=== PATIENT | male | born 1985 | race Caucasian/White ===

== ENCOUNTER 2018-08-04 21:54 | Emergency (ER) | payer SELFPAY ==
[2018-08-05] MEDS ORDERED: BUPIVACAINE 0.25% PF 10 ML VIAL ONE (00:37)
[2018-08-05] MEDS ORDERED: LIDOCAINE 1% MPF 5 ML VIAL ONE (00:37)
--- NOTE | 2018-08-05 01:00 | EDPHYS ---
Physician Documentation [facility] Name: Richmond Burks Age: 32 yrs Sex: Male : 1985 Arrival Date: 08/04/2018 Time: 21:55 Bed 6 Private MD: None, None ED Physician Gary Barillas HPI: 08/05 01:44 This 32 yrs old Male presents to ER via Ambulatory with complaints of snw Laceration To Hand. 01:44 The patient has a laceration related to: cooking, occurred at home, and there are no snw complicating factors. The laceration(s) is(are) located on the palmar aspect of middle phalanx of right little finger. Onset: The symptoms/episode began/occurred suddenly, just prior to arrival. Associated signs and symptoms: Pertinent positives: heavy bleeding. The patient has not experienced similar symptoms in the past. The patient has not recently seen a physician. Historical: - Allergies: 08/04 22:13 Wellbutrin; aj - Immunization history:: Adult Immunizations up to date, Last tetanus immunization: unknown. - Social history:: Smoking status: Patient/guardian denies using tobacco, Patient uses alcohol, patient/guardian reports recent binge of alcohol consumption. - Ebola Screening: : Patient negative for fever greater than or equal to 101.5 degrees Fahrenheit, and additional compatible Ebola Virus Disease symptoms Patient denies exposure to infectious person Patient denies travel to an Ebola-affected area in the 21 days before illness onset No symptoms or risks identified at this time. ROS: 08/05 01:44 Constitutional: Negative for fever, chills, and weight loss, Eyes: Negative for injury, snw pain, redness, and discharge, ENT: Negative for injury, pain, and discharge, Neck: Negative for injury, pain, and swelling, Cardiovascular: Negative for chest pain, palpitations, and edema, Respiratory: Negative for shortness of breath, cough, wheezing, and pleuritic chest pain, Abdomen/GI: Negative for abdominal pain, nausea, vomiting, diarrhea, and constipation, Back: Negative for injury and pain, : Negative for injury, bleeding, discharge, and swelling, MS/Extremity: Negative for injury and deformity, Neuro: Negative for headache, weakness, numbness, tingling, and seizure, Psych: Negative for depression, anxiety, suicide ideation, homicidal ideation, and hallucinations. Skin: Positive for laceration(s), of the palmar aspect of middle phalanx of right little finger. Exam: 01:42 Constitutional: This is a well developed, well nourished patient who is awake, alert, snw and in no acute distress. Head/Face: Normocephalic, atraumatic. Eyes: Pupils equal round and reactive to light, extra-ocular motions intact. Lids and lashes normal. Conjunctiva and sclera are non-icteric and not injected. Cornea within normal limits. Periorbital areas with no swelling, redness, or edema. ENT: Nares patent. No nasal discharge, no septal abnormalities noted. Tympanic membranes are normal and external auditory canals are clear. Oropharynx with no redness, swelling, or masses, exudates, or evidence of obstruction, uvula midline. Mucous membranes moist. Neck: Trachea midline, no thyromegaly or masses palpated, and no cervical lymphadenopathy. Supple, full range of motion without nuchal rigidity, or vertebral point tenderness. No Meningismus. Chest/axilla: Normal chest wall appearance and motion. Nontender with no deformity. No lesions are appreciated. Cardiovascular: Regular rate and rhythm with a normal S1 and S2. No gallops, murmurs, or rubs. Normal PMI, no JVD. No pulse deficits. Respiratory: Lungs have equal breath sounds bilaterally, clear to auscultation and percussion. No rales, rhonchi or wheezes noted. No increased work of breathing, no retractions or nasal flaring. Abdomen/GI: Soft, non-tender, with normal bowel sounds. No distension or tympany. No guarding or rebound. No evidence of tenderness throughout. Back: No spinal tenderness. No costovertebral tenderness. Full range of motion. MS/ Extremity: Pulses equal, no cyanosis. Neurovascular intact. Full, normal range of motion. Neuro: Awake and alert, GCS 15, oriented to person, place, time, and situation. Cranial nerves II-XII grossly intact. Motor strength 5/5 in all extremities. Sensory grossly intact. Cerebellar exam normal. Normal gait. Psych: Awake, alert, with orientation to person, place and time. Behavior, mood, and affect are within normal limits. 01:42 Skin: Appearance: normal except for affected area, injury, laceration(s), the wound is approximately 2 cm(s), with a depth of 1 cm(s), of the palmar aspect of middle phalanx of right little finger. Vital Signs: 08/04 22:13 BP 121 / 80; Pulse 74; Resp 20; Temp 98.1; Pulse Ox 99% on R/A; Weight 77.11 kg; Height aj 5 ft. 7 in. (170.18 cm); 08/05 00:34 BP 140 / 116; Pulse 69; Resp 16; Temp 98; Pulse Ox 98% on R/A; ak1 01:15 BP 117 / 63; Pulse 80; Resp 16; Temp 98.2; Pulse Ox 97% on R/A; Pain 0/10; ak1 08/04 22:13 Body Mass Index 26.63 (77.11 kg, 170.18 cm) aj MDM: 00:58 Patient medically screened. snw 01:43 Data reviewed: vital signs, nurses notes. Data interpreted: Pulse oximetry: on room air snw is 97 %. Interpretation: normal. Counseling: I had a detailed discussion with the patient and/or guardian regarding: the historical points, exam findings, and any diagnostic results supporting the discharge/admit diagnosis, the need for outpatient follow up, to return to the emergency department if symptoms worsen or persist or if there are any questions or concerns that arise at home. Response to treatment: the patient's symptoms have markedly improved after treatment, and as a result, I will discharge patient. Special discussion: Based on the history and exam findings, there is no indication for further emergent testing or inpatient evaluation. I discussed with the patient/guardian the need to see the primary care provider for further evaluation of the symptoms. 08/05 00:23 Order name: Gloves, Sterile; Complete Time: 01:00 snw 08/05 00:23 Order name: Setup Suture Tray; Complete Time: 00:24 snw 08/05 01:00 Order name: Recheck B/P; Complete Time: 01:14 snw Administered Medications: 00:32 Drug: Lidocaine (2 %) Syringe 100 mg {Note: placed at bedside for provider use.} ak1 Volume: 5 ml; Route: Infiltration; 00:33 Drug: Marcaine (0.25 %) 5 ml {Note: placed at bed side for provider use. .} Route: ak1 Infiltration; 01:14 Drug: Tetanus-Diphtheria Toxoid Adult 0.5 ml {Military Source Operations Specialist: [employer]. Exp: ak1 09/08/2020. Lot #: [id number]. } Route: IM; Site: left deltoid; :15 Follow up: Response: No adverse reaction ak1 01:14 Drug: KeFLEX 500 mg Route: PO; ak1 01:15 Follow up: Response: No adverse reaction ak1 Disposition: 08/05/18 00:58 Discharged to Home. Impression: Laceration without foreign body of right little finger without damage to nail. - Condition is Stable. - Discharge Instructions: Stitches, Fab, or Adhesive Wound Closure, Sutured Wound Care, VIS, Tetanus, Diphtheria (Td) - CDC, Wound Care. - Prescriptions for Keflex 500 mg Oral Capsule - take 1 capsule by ORAL route every 8 hours for 10 days; 30 capsule. Diclofenac Sodium 75 mg Oral Tablet Sustained Release - take 1 tablet by ORAL route 2 times per day; 30 tablet. - Work release form, Medication Reconciliation Form, Thank You Letter, Antibiotic Education, Prescription Opioid Use form. - Follow up: Private Physician; When: 2 - 3 days; Reason: Recheck today's complaints, Continuance of care, Re-evaluation by your physician. Follow up: Emergency Department; When: 10 - 14 days; Reason: Staple/Suture removal. - Problem is new. - Symptoms have improved. Addendum: 08/07/2018 06:47 Co-signature as Attending Physician, Gary Barillas MD. g s Signatures: Christy Fry RN Sarah Chung, CERNER ANALYST-C CERNER ANALYST-Csnw Clara Miranda RN RN [facility] Gary Barillas MD MD Corrections: (The following items were deleted from the chart) 08/05 01:16 00:58 08/05/2018 00:58 Discharged to Home. Impression: Laceration without foreign body ak1 of right little finger without damage to nail. Condition is Stable. Forms are Medication Reconciliation Form, Thank You Letter, Antibiotic Education, Prescription Opioid Use. Follow up: Private Physician; When: 2 - 3 days; Reason: Recheck today's complaints, Continuance of care, Re-evaluation by your physician. Follow up: Emergency Department; When: 10 - 14 days; Reason: Staple/Suture removal. Problem is new. Symptoms have improved. snw
--- NOTE | 2018-08-05 01:00 | ER ---
Nurse's Notes [facility] Name: Richmond Burks Age: 32 yrs Sex: Male : 1985 Arrival Date: 08/04/2018 Time: 21:55 Bed 6 Private MD: None, None Diagnosis: Laceration without foreign body of right little finger without damage to nail Presentation: 08/04 22:11 Presenting complaint: Patient states: Cut middle of right 5th digit with kitchen knife aj while cutting vegetables today just [employer]. Transition of care: patient was not received from another setting of care. Complicating Factors: There are no complicating factors for this patient. Onset of symptoms was August 04, 2018. Risk Assessment: Do you want to hurt yourself or someone else? Patient reports no desire to harm self or others. Initial Sepsis Screen: Does the patient meet any 2 criteria? No. Patient's initial sepsis screen is negative. Does the patient have a suspected source of infection? No. Patient's initial sepsis screen is negative. Care prior to arrival: None. 22:11 Method Of Arrival: Ambulatory aj 22:11 Acuity: REYES 4 aj Triage Assessment: 22:13 General: Appears in no apparent distress. comfortable, Behavior is calm, cooperative, aj appropriate for age. Pain: Complains of pain in palmar aspect of middle phalanx of right little finger. Neuro: Level of Consciousness is awake, alert, obeys commands, Oriented to person, place, time, situation, Appropriate for age. Respiratory: Airway is patent Respiratory effort is even, unlabored, Respiratory pattern is regular, symmetrical. Derm: Skin is intact, is healthy with good turgor, Skin is pink, warm \T\ dry. normal. Injury Description: Laceration sustained to palmar aspect of middle phalanx of right little finger is 0.5 to 2.5 cm long. Historical: - Allergies: 22:13 Wellbutrin; aj - Immunization history:: Adult Immunizations up to date, Last tetanus immunization: unknown. - Social history:: Smoking status: Patient/guardian denies using tobacco, Patient uses alcohol, patient/guardian reports recent binge of alcohol consumption. - Ebola Screening: : Patient negative for fever greater than or equal to 101.5 degrees Fahrenheit, and additional compatible Ebola Virus Disease symptoms Patient denies exposure to infectious person Patient denies travel to an Ebola-affected area in the 21 days before illness onset No symptoms or risks identified at this time. Screenin:21 Abuse screen: Denies threats or abuse. Denies injuries from another. Nutritional ak1 screening: No deficits noted. Tuberculosis screening: No symptoms or risk factors identified. Fall Risk None identified. Assessment: 23:19 General: Appears in no apparent distress. Behavior is cooperative. Pain: Complains of ak1 pain in right hand and palmar aspect of middle phalanx of right little finger. Neuro: No deficits noted. Cardiovascular: No deficits noted. Respiratory: No deficits noted. GI: No signs and/or symptoms were reported involving the gastrointestinal system. : No signs and/or symptoms were reported regarding the genitourinary system. EENT: No signs and/or symptoms were reported regarding the EENT system. Derm: Wound noted palmar aspect of middle phalanx of right little finger. Musculoskeletal: laceration to right 5th digit. pt stated he was using his pocket knife to open a bottle of wine. Injury Description: Laceration sustained to palmar aspect of middle phalanx of right little finger is clean, 0.5 to 2.5 cm long, was sustained 1-2 hours ago. is bleeding a small amount. 23:21 Reassessment: laceration set up placed at bedside for provider use. ak1 08/05 00:20 Reassessment: pt informed of wait for a provider to take over care. pt resting with ak1 family at bedside. will continue to monitor. Vital Signs: 08/04 22:13 BP 121 / 80; Pulse 74; Resp 20; Temp 98.1; Pulse Ox 99% on R/A; Weight 77.11 kg; Height aj 5 ft. 7 in. (170.18 cm); 08/05 00:34 BP 140 / 116; Pulse 69; Resp 16; Temp 98; Pulse Ox 98% on R/A; ak1 01:15 BP 117 / 63; Pulse 80; Resp 16; Temp 98.2; Pulse Ox 97% on R/A; Pain 0/10; ak1 08/04 22:13 Body Mass Index 26.63 (77.11 kg, 170.18 cm) ED Course: 08/04 21:55 Patient arrived in ED. mr 21:55 None, None is Private Physician. mr 22:12 Triage completed. aj 22:13 Arm band placed on left wrist. Patient placed in waiting room, Patient notified of wait aj time. 23:15 Clara Miranda, RN is Primary Nurse. ak1 23:21 Patient has correct armband on for positive identification. Bed in low position. Call ak1 light in reach. Side rails up X 1. Adult w/ patient. Pulse ox on. NIBP on. 08/05 00:22 Sarah Feldman [facility]NP-C [facility] snw 00:22 Gary Barillas MD is Attending Physician. snw 00:35 Assist provider with laceration repair on palmar aspect of middle phalanx of right ak1 little finger that was 2.5 cm. or less using sutures. Set up tray. Performed by Sarah MCCANN Patient tolerated well. 01:16 Patient did not have IV access during this emergency room visit. ak1 Administered Medications: 00:32 Drug: Lidocaine (2 %) Syringe 100 mg {Note: placed at bedside for provider use.} ak1 Volume: 5 ml; Route: Infiltration; 00:33 Drug: Marcaine (0.25 %) 5 ml {Note: placed at bed side for provider use. .} Route: ak1 Infiltration; 01:14 Drug: Tetanus-Diphtheria Toxoid Adult 0.5 ml {Skin Installer: [employer]. Exp: ak1 09/08/2020. Lot #: [id number]. } Route: IM; Site: left deltoid; 01:15 Follow up: Response: No adverse reaction ak1 01:14 Drug: KeFLEX 500 mg Route: PO; ak1 01:15 Follow up: Response: No adverse reaction ak1 Outcome: 00:58 Discharge ordered by . snw 01:15 Discharged to home ambulatory, with family. ak1 01:15 Condition: good 01:15 Discharge instructions given to patient, Instructed on discharge instructions, follow up and referral plans. medication usage, wound care, Demonstrated understanding of instructions, follow-up care, medications, Prescriptions given X 2. 01:16 Patient left the ED. ak1 Signatures: Christy Fry RN RN aj Therrien, Shelly, FNP-C CLINICAL ASSISTANT PROFESSOR-Csn Constance Hall Clara Miranda, RN RN ak1
[2018-08-05] MEDS ORDERED: CEPHALEXIN 250 MG CAP ONE (01:13)
[2018-08-05] MEDS ORDERED: TETANUS & DIPHTHERIA TOX,ADULT 0.5 ML VIAL ONE (01:14)
== END 2018-08-05 01:16 | disposition home or self-care (01) ==
LOC: ER 21:54
PROC: 0JQJ0ZZ Repair Right Hand Subcutaneous Tissue and Fascia, Open Approach (ICD-10-PCS; principal; 2018-08-05)
DX: S61.216A Laceration without foreign body of right little finger without damage to nail, initial encounter (principal); W45.8XXA Other foreign body or object entering through skin, initial encounter; Y93.G3 Activity, cooking and baking; Y92.009 Unspecified place in unspecified non-institutional (private) residence as the place of occurrence of the external cause; Z23 Encounter for immunization; Z88.8 Allergy status to other drugs, medicaments and biological substances
CPT/HCPCS: 90714; 99284